=== PATIENT | female | born 1985 | race Caucasian/White ===

== ENCOUNTER 2016-12-19 10:11 | Emergency (ER) | payer SELFPAY ==
[2016-12-19 10:17] VITALS: BP 139/83
--- NOTE | 2016-12-19 10:32 | ED Physician Documentation ---
PD HPI URI - Stated complaint Stated Complaint: THROAT PX - Chief complaint Chief Complaint: Heent - History obtained from History obtained from: Patient - History of Present Illness Timing - onset: How many days ago (few) Timing duration: Days (few) Timing details: Gradual onset, Still present Associated symptoms: Fever, Chills, Sore throat, Swollen nodes. No: Nasal congestion, Rhinorrhea, Dry cough, Productive cough Contributing factors: No: Sick contact Similar symptoms before: Diagnosis (strep throat) Recently seen: Not recently seen Review of Systems Constitutional: reports: Fever, Chills, Myalgias Nose: denies: Rhinorrhea / runny nose, Congestion Throat: reports: Sore throat Respiratory: denies: Cough GI: reports: Nausea. denies: Vomiting, Diarrhea Skin: denies: Rash, Lesions PD PAST MEDICAL HISTORY - Past Medical History Past Medical History: No Endocrine/Autoimmune: None - Past Surgical History Past Surgical History: Yes General: Cholecystectomy - Present Medications Home Medications: Ambulatory Orders Medication Instructions Recorded Confirmed Cephalexin [Keflex] 500 mg PO TID #20 capsule 12/19/16 Dexamethasone [Decadron] 4 mg PO DAILY #5 tablet 12/19/16 Ibuprofen [Motrin] 600 mg PO TID #20 tab 12/19/16 - Allergies Allergies/Adverse Reactions: Allergies Allergy/AdvReac Type Severity Reaction Status Date / Time No Known Drug Allergies Allergy Verified 12/19/16 10:16 - Social History Does the pt smoke?: No Smoking Status: Never smoker Does the pt drink ETOH?: No Does the pt have substance abuse?: No - Immunizations Immunizations are current?: Yes PD ED PE NORMAL - Vitals Vital signs reviewed: Yes - General General: Alert and oriented X 3, No acute distress, Well developed/nourished - HEENT HEENT: Ears normal, Moist mucous membranes. No: Pharynx benign (moderately red , swelling, exudative tonsils with anterior adenopathy. ) - Neck Neck: Supple, no meningeal sign - Cardiac Cardiac: RRR, No murmur - Respiratory Respiratory: Clear bilaterally - Derm Derm: Normal color, Warm and dry, No rash - Extremities Extremities: No deformity, No tenderness to palpate - Neuro Neuro: Alert and oriented X 3, No motor deficit, Normal speech Results - Vitals Vitals: Oxygen O2 Source Room air - Labs Labs: Microbiology 12/19/16 10:52 Group A Strep Throat Culture - Final Throat Laboratory Tests 12/19/16 10:52 Group A Strep Rapid Negative PD MEDICAL DECISION MAKING - ED course Complexity details: reviewed results (her symptoms are pretty convincing for likely strep with 4/4 Centor, so will treat empirically pending culture results , which will likely be positive. ), considered differential, d/w patient Departure - Departure Disposition: 01 Home, Self Care Clinical Impression: Pharyngitis Qualifiers: Pharyngitis/tonsillitis etiology: unspecified etiology Qualified Code(s): J02.9 - Acute pharyngitis, unspecified Condition: Stable Record reviewed to determine appropriate education?: Yes Instructions: ED Strep Pharyngitis Poss Follow-Up: [facility] [Provider Group] Prescriptions: Dexamethasone [Decadron] 4 mg PO DAILY #5 tablet Cephalexin [Keflex] 500 mg PO TID #20 capsule Ibuprofen [Motrin] 600 mg PO TID #20 tab Comments: Suspicious for strep throat, so will treat it empirically pending culture results, which will result in 2-3 days. Ibuprofen three times daily for pains. Decadron for swelling of tonsils, and Cephalexin as directed for infection. Drink lots of fluids. Discharge Date/Time: 12/19/16 11:09
[2016-12-19] MEDS ORDERED: CEPHALEXIN 250 MG CAPSULE PO STA (10:52)
[2016-12-19] MEDS ORDERED: DEXAMETHASONE 10 MG/ML VIAL PO STA (10:52)
[2016-12-19] MEDS ORDERED: ACETAMINOPHEN 325 MG TABLET PO STA (10:52)
[2016-12-19] MEDS ORDERED: CHERRY SYRUP 10 ML UDC PO ONE (10:58)
[2016-12-19] MEDS ORDERED: CEPHALEXIN 250 MG CAPSULE PO ONE (10:58)
[2016-12-19] MEDS ORDERED: DEXAMETHASONE 10 MG/ML VIAL ONE (10:59)
[2016-12-19] MEDS ORDERED: ACETAMINOPHEN 325 MG TABLET PO ONE (10:59)
[2016-12-19 11:10] LABS: RAPID STREP SCREEN REAGENT QC YELLOW (YELLOW)
== END 2016-12-19 11:09 | disposition home or self-care (01) ==
LOC: ED 10:11
DX: J02.9 Acute pharyngitis, unspecified (principal)
CPT/HCPCS: 87070; 87430; 99283; A9270